=== PATIENT | female | born 1990 | race American Indian/Alaskan Native ===

== ENCOUNTER 2019-05-27 15:06 | Emergency (ER) | payer MEDICAID ==
[2019-05-27 15:25] VITALS: BP 143/82
--- NOTE | 2019-05-27 15:28 | Event Note ---
ED Screening Note Date of service: 05/27/19 Time: 15:24 ED Screening Note: 28 y o female presents with dizziness x today cc of migraines, nausea This initial assessment/diagnostic orders/clinical plan/treatment(s) is/are subject to change based on patients health status, clinical progression and re- assessment by fellow clinical providers in the ED. Further treatment and workup at subsequent clinical providers discretion. Patient/guardian urged not to elope from the ED as their condition may be serious if not clinically assessed and managed. Initial orders include: ua,upt,cbc,bmp
--- NOTE | 2019-05-27 16:07 | Emergency Department Report ---
ED Headache HPI - General Chief Complaint: Dizziness Stated Complaint: DIZZY Time Seen by Provider: 05/27/19 15:23 - History of Present Illness Initial Comments: Mrs. Jerez is a very pleasant 28-year-old female who presents with headache for the past 2 weeks. She's had nausea and blurry vision. She felt as if she ne eded a new prescription for her corrective lenses. Consequently last week she went to the [facility] diagnosed papilledema. She was immediately referred that day to [facility] who confirmed the diagnosis. As result outpatient MRI scheduled for next Sunday by [facility]. Outpatient follow-up neurologist next week Sunday is scheduled to discuss the results. Today she had worsening symptoms including vertigo. She's having a hard time focusing on words especially scrolling on her smartphone and computer screen. She sees spots. No previous history of vertigo. Lately she feels as if her head is underwater. Timing/Duration: other (2 week) Quality: moderate Head Injury Location: global Recent Head Trauma: no recent headache/trauma Associated Symptoms: vision changes, other (nausea vertigo) Allergies/Adverse Reactions: Allergies latex Allergy (Verified 05/27/19 15:22) Rash naproxen Allergy (Verified 05/27/19 15:22) Hives Home Medications: Ambulatory Orders acetaZOLAMIDE [Diamox TAB] 2 tab PO BID #40 tablet 05/27/19 ED Review of Systems ROS: Stated complaint: DIZZY Other details as noted in HPI Comment: All other systems reviewed and negative Constitutional: denies: fever, malaise Eyes: vision change Cardiovascular: denies: chest pain Gastrointestinal: nausea Neurological: headache, vertigo. denies: numbness, paresthesias ED Past Medical Hx - Past Medical History Previous Medical History?: Yes Additional medical history: papilledema OU - Surgical History Past Surgical History?: No - Social History Smoking Status: Current Every Day Smoker Substance Use Type: None - Medications Home Medications: Home Medications Medication Instructions Recorded Confirmed Last Taken Type acetaZOLAMIDE [Diamox TAB] 2 tab PO BID #40 tablet 05/27/19 Unknown Rx ED Physical Exam - General Limitations: No Limitations General appearance: alert, in no apparent distress - Head Head exam: Present: atraumatic, normocephalic - Eye Eye exam: Present: normal appearance, PERRL. Absent: scleral icterus, conjunctival injection, periorbital swelling, periorbital tenderness - ENT ENT exam: Present: mucous membranes moist - Neck Neck exam: Present: normal inspection, full ROM - Respiratory Respiratory exam: Present: normal lung sounds bilaterally. Absent: respiratory distress, wheezes, rales, rhonchi - Cardiovascular Cardiovascular Exam: Present: regular rate, normal rhythm, normal heart sounds. Absent: systolic murmur, diastolic murmur, rubs, gallop - GI/Abdominal GI/Abdominal exam: Present: soft, normal bowel sounds. Absent: distended, tenderness, guarding, rebound - Extremities Exam Extremities exam: Present: normal inspection - Back Exam Back exam: Present: normal inspection - Neurological Exam Neurological exam: Present: alert, oriented X3 - Psychiatric Psychiatric exam: Present: normal affect, normal mood - Skin Skin exam: Present: warm, dry, intact, normal color. Absent: rash ED Course Vital Signs 05/27/19 15:23 Temperature 98 F Pulse Rate 79 Respiratory 20 Rate Blood Pressure 143/82 [Right] O2 Sat by Pulse 100 Oximetry ED Medical Decision Making - Lab Data Result diagrams: 05/27/19 16:08 05/27/19 16:08 - Medical Decision Making Mrs. Jerez presents with 2 weeks of headache nausea or visual disturbance with history of papilledema. Today symptoms have progressed to vertigo. At this time lumbar puncture is warranted for diagnosis and treatment of pseudotumor idiopathic intracranial hypertension. Mrs. Jerez provided informed consent for lumbar puncture. She was unable to tolerate several attempts of lumbar puncture. Procedure aborted. She will take diamox until her appointment next sunday with neurology Critical care attestation.: If time is entered above; I have spent that time in minutes in the direct care of this critically ill patient, excluding procedure time. ED Disposition Clinical Impression: Pseudotumor cerebri Disposition: DC-01 TO HOME OR SELFCARE Is pt being admited?: No Does the pt Need Aspirin: No Condition: Stable Instructions: Idiopathic Intracranial Hypertension (ED) Additional Instructions: Please take this paperwork and a copy of prescription to your neurology appointment next Sunday. Please inform the neurologist that spinal tap was attempted but unsuccessful. Prescriptions: acetaZOLAMIDE [Diamox TAB] 2 tab PO BID #40 tablet
[2019-05-27 16:12] LABS: HCG Qualitative,Urine Negative (Negative)
[2019-05-27 16:13] LABS: Bacteria,Urine 1+ /HPF (Negative); Bilirubin,Urine NEG (Negative); Blood,Urine NEG (Negative); Color,Urine Yellow (Yellow); Mucus,Urine FEW /HPF; Protein,Urine <15 mg/dL mg/dL (Negative)
[2019-05-27] MEDS ORDERED: LIDOCAINE (1%) 10 MG/1 ML VIAL 20 ML MDV INFILTRATI ONE (16:13)
[2019-05-27] MEDS ORDERED: LIDOCAINE (1%) 10 MG/1 ML VIAL 20 ML MDV ONE (16:16)
[2019-05-27 16:35] LABS: Basophils # (Auto) 0.1 K/mm3 (0.0-0.1); Basophils % (Auto) 0.9 % (0.0-1.8); Eosinophils # (Auto) 0.4 K/mm3 (0.0-0.4); Hematocrit 39.8 % (30.3-42.9); Hemoglobin 13.7 gm/dl (10.1-14.3); Lymphocytes # (Auto) 3.3 K/mm3 (1.2-5.4); Lymphocytes % (Auto) 30.5 % (13.4-35.0); Mean Corpuscular HGB Conc 35 % (30-34); Mean Corpuscular Volume 93 fl (79-97); Monocytes # (Auto) 0.8 K/mm3 (0.0-0.8); Monocytes % (Auto) 7.5 % (0.0-7.3); Platelet Count 260 K/mm3 (140-440); Red Blood Count 4.29 M/mm3 (3.65-5.03); Red Cell Distribution Width 13.3 % (13.2-15.2)
[2019-05-27 16:45] LABS: INR 0.96 (0.87-1.13)
[2019-05-27 16:48] LABS: BUN/Creatinine Ratio 14; Blood Urea Nitrogen 10 mg/dL (7-17); Calcium 8.9 mg/dL (8.4-10.2); Hemolysis Index 3
[2019-05-27 16:57] LABS: Partial Thromboplastin Time 26.5 Sec. (24.2-36.6)
--- NOTE | 2019-05-27 17:20 | Cat Scan Report ---
CT BRAIN: 05/27/2019 INDICATION / CLINICAL INFORMATION: headache papilledema vertigo. COMPARISON: None available. FINDINGS: BRAIN/INTRACRANIAL STRUCTURES: Unenhanced CT images of the brain demonstrate no evidence of acute int racranial abnormality. Ventricles and sulci are normal in size and shape. There is no evidence of acute ischemic injury, hemorrhage, or mass. There are no abnormal extra-axial fluid collections. EXTRACRANIAL STRUCTURES: Unremarkable. IMPRESSION: Negative unenhanced CT of the brain. All CT scans at this location are performed using dose reduction to ALARA by means of automated expos ure control. Signer Name: Rei Quezada MD Signed: 05/27/2019 5:16 PM Workstation Name: [id number]
[2019-05-27] MEDS ORDERED: traMADol 50 MG TAB PO ONE (17:51)
[2019-05-27] MEDS ORDERED: MECLIZINE 25 MG TAB PO ONE (17:51)
== END 2019-05-27 19:02 | disposition home or self-care (01) ==
LOC: ED 15:06
DX: G93.2 Benign intracranial hypertension (principal); F17.200 Nicotine dependence, unspecified, uncomplicated; Z91.040 Latex allergy status; Z88.8 Allergy status to other drugs, medicaments and biological substances
CPT/HCPCS: 36415; 70450; 80048; 81001; 81025; 85025; 85610; 85730